=== PATIENT | male | born 1950 | race Caucasian/White ===

== ENCOUNTER → 2017-03-25 | Outpatient (CLI) | payer MEDICARE, OTHER ==
[2015-01-12 15:32] VITALS: BP 136/57
[~2017-03-25] MED LIST: AMPI250V3 PO; AMPI500C2 PO; CALC667C6 PO; CARV12.52 PO; CEPH500C PO; CYAN50LO PO; CYCL10TA2 PO; FENT1PAT15 TP; FOLI0.8T21 PO; FURO80TA72 PO; HYDR-2666 PO; HYDR-963 PO; HYDR1TAB12 PO; IOHEXOL 240 MG/ML 50ML VIAL. PO ONE; LANT1000 PO; OLME1TAB PO; OLME1TAB3 PO; OLME20TA PO; OMEG300C PO; OXYC5TAB88 PO; PIOG30TA3 PO; SEVE800T9 PO; TRAM50TA PO
== END | disposition home or self-care (01) ==
LOC: KCIC MRI 09:00
PROVIDERS: ATTEND Physician Assistant
DX: Z53.09 Procedure and treatment not carried out because of other contraindication (principal)
CPT/HCPCS: Q9966